=== PATIENT | female | born 1995 | race Two or more races ===

== ENCOUNTER 2023-10-01 01:46 | Outpatient (CLI) | payer OTHER ==
[~2023-10-01] VITALS: Ht 160 cm; Wt 89.8 kg
[2023-10-01] MEDS ORDERED: LOPERAMIDE HCL 2 MG CAPSULE PO ONE (02:00)
[2023-10-01] MEDS ORDERED: RINGERS SOLUTION,LACTATED 1,000 ML IV SCH (02:00)
[2023-10-01] MEDS ORDERED: ACETAMINOPHEN 500 MG GEL..CAP PO PRN (02:00)
[2023-10-01] MEDS ORDERED: PRENATAL TABLE1 EAC1 PO (02:15)
[2023-10-01] MEDS ORDERED: ORTHO DF 3,7751 EACH PO (02:16)
[2023-10-01] MEDS ORDERED: TYLENOL325 MG PO (02:16)
[2023-10-01 02:36] LABS: URINE APPEARANCE Clear; URINE BILIRRUBIN Negative (NEGATIVE); URINE BLOOD Negative; URINE COLOR Yellow; URINE GLUCOSE Negative (NEGATIVE); URINE LEUKOCYTE Negative; URINE NITRATE Negative; URINE PROTEIN Trace (NEGATIVE); URINE UROBILINOGEN 0.2 E.U./dl
[2023-10-01 02:37] LABS: HEMATOCRIT 34.3 % (36.0-45.00); HEMOGLOBIN 11.5 g/dL (12.0-15.00); MEAN CELL VOLUME 86.5 fL (80.00-100.00); MEAN CORPUSCULAR HEMOGLOBIN 29.1 pg (27.00-32.0); MEAN CORPUSCULAR HGB CONC 33.6 g/dl (32.0-36.0); PLATELET COUNT 221 K/uL (150-450); RED BLOOD COUNT 3.97 M/uL (4.00-6.00); RED CELL DISTRIBUTION WIDTH 12.8 % (11.5-14.5)
[2023-10-01 02:39] LABS: URINE BACTERIA 415.7 uL (0.0-1933); URINE EPITHELIAL CELLS 40.1 uL (0.0-38.8); URINE RBC 4.1 uL (0.0-20.8); URINE WBC 11.5 uL (0.0-23.2)
[2023-10-01 02:52] LABS: INR < 0.93; PARTIAL THROMBOPLASTIN TIME 29.3 SECONDS (22.0-34.0); PROTHROMBIN TIME 9.8 SECONDS (9.0-11.5)
[2023-10-01 02:57] LABS: ALBUMIN 2.6 gm/dL (3.4-5.0); BILIRUBIN TOTAL 0.78 mg/dL (0.3-1.2); CALCIUM 8.8 mg/dL (8.5-10.1); CREATININE SERUM 0.52 mg/dL (0.55-1.02); GFR 142.54; GLOBULINA 3.9 G/DL (2.4-3.5); POTASSIUM 3.63 mEq/L (3.5-5.1); TOTAL PROTEIN 6.5 gm/dL (6.4-8.2)
== END 2023-10-01 09:15 | disposition home or self-care (01) ==
LOC: OBS/DEL 01:46
PROVIDERS: ATTEND Specialist
DX: O26.893 Other specified pregnancy related conditions, third trimester (principal); K52.89 Other specified noninfective gastroenteritis and colitis; Z3A.28 28 weeks gestation of pregnancy

== ENCOUNTER 2023-11-30 14:14 | Inpatient (IN) | payer OTHER ==
[~2023-11-30] VITALS: Ht 160 cm; Wt 2.7 kg
[~2023-11-30 14:14] MED LIST: ORTHO DF 3,7751 EACH PO; PRENATAL TABLE1 EAC1 PO; TYLENOL325 MG PO
[2023-12-22] MEDS ORDERED: AMPICILLIN SODIUM 2,000 MG VIAL IV STA (06:13)
[2023-12-22 06:15] VITALS: BP 123/77
[2023-12-22] MEDS ORDERED: RINGERS SOLUTION,LACTATED 1,000 ML IV SCH (06:15)
[2023-12-22 07:26] LABS: HEMATOCRIT 39.6 % (36.0-45.00); HEMOGLOBIN 13.5 g/dL (12.0-15.00); MEAN CELL VOLUME 87.8 fL (80.00-100.00); MEAN CORPUSCULAR HEMOGLOBIN 29.8 pg (27.00-32.0); PLATELET COUNT 196 K/uL (150-450); RED BLOOD COUNT 4.51 M/uL (4.00-6.00); RED CELL DISTRIBUTION WIDTH 13.7 % (11.5-14.5)
[2023-12-22 07:30] LABS: INR < 0.93; PARTIAL THROMBOPLASTIN TIME 28.2 SECONDS (22.0-34.0); PROTHROMBIN TIME 9.8 SECONDS (9.0-11.5)
[2023-12-22] MEDS ORDERED: OXYTOCIN 500 ML IV SCH (07:30)
[2023-12-22 07:48] VITALS: BP 140/68
[2023-12-22 07:52] LABS: ALBUMIN 2.6 gm/dL (3.4-5.0); BILIRUBIN TOTAL 0.77 mg/dL (0.3-1.2); CALCIUM 9.4 mg/dL (8.5-10.1); CREATININE SERUM 0.61 mg/dL (0.55-1.02); GFR 118.56; GLOBULINA 4.1 G/DL (2.4-3.5); POTASSIUM 4.03 mEq/L (3.5-5.1); TOTAL PROTEIN 6.7 gm/dL (6.4-8.2)
[2023-12-22] MEDS ORDERED: AMPICILLIN SODIUM 1,000 MG VIAL IV SCH (09:00)
[2023-12-22 09:34] LABS: PH,URINE 6.5 (5.0-8.0); URINE APPEARANCE Clear; URINE BILIRRUBIN Negative (NEGATIVE); URINE BLOOD Large; URINE COLOR Dark Yellow; URINE GLUCOSE Negative (NEGATIVE); URINE KETONE 15 (NEGATIVE); URINE LEUKOCYTE Moderate; URINE NITRATE Negative; URINE PROTEIN 30 (NEGATIVE)
[2023-12-22 09:37] LABS: URINE BACTERIA 676.6 uL (0.0-1933); URINE EPITHELIAL CELLS 12.3 uL (0.0-38.8); URINE RBC 290.7 uL (0.0-20.8); URINE WBC 418.8 uL (0.0-23.2)
[2023-12-22 10:09] LABS: URINE CAST 0.15 uL (0.0-1.40)
[2023-12-22 11:46] VITALS: BP 133/72
[2023-12-22] MEDS ORDERED: OXYTOCIN 10 UNITS/ML VIAL IV ONE (12:00)
[2023-12-22] MEDS ORDERED: ERYTHROMYCIN BASE OPHT 1GM EACH TUBE OP ONE (12:00)
[2023-12-22] MEDS ORDERED: MEPERIDINE HCL/PF 50 MG/ML VIAL IM PRN (13:15)
[2023-12-22] MEDS ORDERED: CEFAZOLIN SODIUM 1,000 MG VIAL IV ONE (13:15)
[2023-12-22] MEDS ORDERED: PROMETHAZINE HCL 50 MG/ML AMPUL IM PRN (13:15)
[2023-12-22] MEDS ORDERED: CEFAZOLIN SODIUM 1,000 MG VIAL IV SCH (14:00)
[2023-12-22] MEDS ORDERED: MORPHINE SULFATE 4 MG/ML VIAL IV ONE (14:30)
[2023-12-22 16:00] VITALS: BP 139/80
[2023-12-23 00:17] VITALS: BP 119/75
[2023-12-23 02:44] LABS: HEMATOCRIT 34.5 % (36.0-45.00); HEMOGLOBIN 11.7 g/dL (12.0-15.00); MEAN CELL VOLUME 88.2 fL (80.00-100.00); MEAN CORPUSCULAR HEMOGLOBIN 29.8 pg (27.00-32.0); MEAN CORPUSCULAR HGB CONC 33.8 g/dl (32.0-36.0); PLATELET COUNT 180 K/uL (150-450); RED BLOOD COUNT 3.91 M/uL (4.00-6.00); RED CELL DISTRIBUTION WIDTH 14.1 % (11.5-14.5)
[2023-12-23 04:00] VITALS: BP 140/76
[2023-12-23] MEDS ORDERED: OxyCODONE HCL/APAP UD (PERCOCET) PO PRN (07:45)
[2023-12-23] MEDS ORDERED: ACETAMINOPHEN 500 MG GEL..CAP PO PRN (07:45)
[2023-12-23 08:41] VITALS: BP 131/81
[2023-12-23 17:02] VITALS: BP 136/83
[2023-12-24 00:24] VITALS: BP 130/78
[2023-12-24] MEDS ORDERED: MONISTAT 745 GM VAG (07:45)
[2023-12-24 08:39] VITALS: BP 136/84
[2023-12-24 17:06] VITALS: BP 134/82
[2023-12-25] VITALS: BP 138/77
[2023-12-25 07:41] VITALS: BP 135/80
== END 2023-12-25 18:09 | disposition home or self-care (01) | DRG 788 ==
LOC: LDR 12-22 05:50 → O/R 12-22 12:17 → OB/GYN 12-22 15:24
PROVIDERS: ADMIT Specialist; ATTEND Specialist
PROC: 4A1HXCZ Monitoring of Products of Conception, Cardiac Rate, External Approach (ICD-10-PCS; 2023-12-22)
PROC: 10D00Z1 Extraction of Products of Conception, Low, Open Approach (ICD-10-PCS; principal; 2023-12-22 12:30)
DX: O36.8330 Maternal care for abnormalities of the fetal heart rate or rhythm, third trimester, not applicable or unspecified (principal); O99.824 Streptococcus B carrier state complicating childbirth; Z3A.39 39 weeks gestation of pregnancy; Z37.0 Single live birth; Z20.822 Contact with and (suspected) exposure to COVID-19